=== PATIENT | female | born 1975 | race Caucasian/White ===

== ENCOUNTER → 2024-09-23 | Outpatient (CLI) | payer SELFPAY ==
--- NOTE | 2024-09-23 10:20 | RAD_ITS ---
HISTORY: Segmental and somatic dysfunction of lumbar region, LOWER BACK PA. TECHNIQUE: XR Spine Lumbar Min 4 Views. COMPARISON: None. FINDINGS: VERTEBRAE: Vertebral body heights preserved. Posterior elements appear intact. ALIGNMENT: No significant anterior or posterior subluxation. INTERVERTEBRAL DISCS: Mild degenerative endplate changes with intervertebral disc space narrowing of L1-2, L3-4, L4-5, and L5-S1. SOFT TISSUES: Moderate stool and air in the colon. RAD/L/S Spine Min 4 Views IMPRESSION: No acute fracture or dislocation identified in the lumbar spine. Mild multilevel degenerative change. Electronically Signed: Shahnaz Mcbride MD at 8:43 EST ,
== END | disposition home or self-care (01) ==
PROVIDERS: PCP Internal Medicine; Referring Provider Chiropractor Orthopedic; Visit Provider Chiropractor Orthopedic
DX: M99.03 Segmental and somatic dysfunction of lumbar region (principal); M54.50 Low back pain, unspecified
CPT/HCPCS: 72110